=== PATIENT | female | born 2000 | race African-American/Black ===

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

== ENCOUNTER 2019-05-12 15:28 | Emergency (ER) | payer SELFPAY ==
[~2019-05-12] VITALS: Ht 157.5 cm; Wt 105.3 kg
[~2019-05-12 15:28] MED LIST: RANI-376 PO
--- NOTE | 2019-05-12 15:52 | PHYS DOC ---
Past History Past Medical History: Anemia, Constipation Past Surgical History: Tonsillectomy, Other Alcohol Use: None Drug Use: None Adult General Chief Complaint Chief Complaint: NAUSEA/VOMITING/DIARRHEA HPI HPI Patient is a 19-year-old -[place] female who presents secondary to complaint of nausea vomiting and diarrhea since 230 this morning. No fever chills reported. No significant abdominal pain. No medication taken prior to arrival. Patient's last menstrual period was on April 21. No sick contacts. Review of Systems Review of Systems All other systems were reviewed and found to be within normal limits, except as documented in this note. Allergies Allergies Allergies Coded Allergies Type Severity Reaction Last Updated Verified No Known Drug Allergies 09/20/18 No Physical Exam Physical Exam Constitutional: Well developed, well nourished, no acute distress, non-toxic appearance. [] HENT: Normocephalic, atraumatic, bilateral external ears normal, oropharynx moist, no oral exudates, nose normal. [] Eyes: PERRLA, EOMI, conjunctiva normal, no discharge. [] Neck: Normal range of motion, no tenderness, supple, no stridor. [] Cardiovascular:Heart rate regular rhythm, no murmur [] Lungs & Thorax: Bilateral breath sounds clear to auscultation [] Abdomen: Bowel sounds normal, soft, no tenderness, no masses, no pulsatile masses. [] Skin: Warm, dry, no erythema, no rash. [] Back: No tenderness, no CVA tenderness. [] Extremities: No tenderness, no cyanosis, no clubbing, ROM intact, no edema. [] Neurologic: Alert and oriented X 3, normal motor function, normal sensory function, no focal deficits noted. [] Psychologic: Affect normal, judgement normal, mood normal. [] EKG EKG [] Radiology/Procedures Radiology/Procedures [] Course & Med Decision Making Course & Med Decision Making Pertinent Labs and Imaging studies reviewed. (See chart for details) Patient seen for gastroenteritis type symptoms. Will place an IV and give IV fluids, check labs. Check . Patient's work-up is negative. She is not . She is feeling better. Will discharge home with ODT Geoffreyan. Sherry Disclaimer Sherry Disclaimer This electronic medical record was generated, in whole or in part, using a voice recognition dictation system. Departure Departure: Impression: Primary Impression: Nausea vomiting and diarrhea Disposition: HOME, SELF-CARE Condition: IMPROVED Referrals: [facility] (PCP) Patient Instructions: Nausea and Vomiting Scripts Ondansetron Hcl (ZOFRAN) 4 Mg Tablet 1 TAB PO PRN Q6HRS PRN for NAUSEA, #15 TAB Prov: GRAY GOMEZ DO 05/12/19 GRAY GOMEZ DO May 12, 2019 15:52
[2019-05-12] MEDS ORDERED: ONDANSETRON PF 4 MG/2 ML VIAL. IVP ONE (16:00)
[2019-05-12] MEDS ORDERED: IV NORMAL SALINE 1,000ML 1,000 ML IV ONE (16:00)
[2019-05-12 16:01] VITALS: BP 123/80
[2019-05-12 16:13] LABS: BASO % 0 % (0-3); EOS # 0.1 x10^3/uL (0.0-0.7); EOS % 1 % (0-3); HEMATOCRIT 35.7 % (36.0-47.0); HEMOGLOBIN 11.4 g/dL (12.0-15.5); LYMPH # 0.4 x10^3/uL (1.0-4.8); LYMPH % 4 % (24-48); MEAN CORPUSCULAR HEMOGLOBIN 22 pg (25-35); MEAN CORPUSCULAR HGB CONC 32 g/dL (31-37); MEAN CORPUSCULAR VOLUME 69 fL (79-100); MONO # 0.2 x10^3/uL (0.0-1.1); MONO % 2 % (0-9); NEUT # 9.1 x10^3uL (1.8-7.7); NEUT % 92 % (31-73); PLATELET COUNT 375 x10^3/uL (140-400); RED BLOOD COUNT 5.19 x10^6/uL (3.50-5.40); RED CELL DISTRIBUTION WIDTH 16.7 % (11.5-14.5); WHITE BLOOD COUNT 9.9 x10^3/uL (4.0-11.0)
[2019-05-12 16:22] LABS: CALCIUM 8.6 mg/dL (8.5-10.1); CREATININE 0.7 mg/dL (0.6-1.0); GFR 129.1; POTASSIUM 4.1 mmol/L (3.5-5.1)
[2019-05-12 16:28] LABS: PREG TEST PT QUAL NEGATIVE (NEG)
[2019-05-12 16:28] LABS: ALBUMIN 3.6 g/dL (3.4-5.0); ALBUMIN/GLOBULIN RATIO 0.9 (1.0-1.7); TOTAL BILIRUBIN 0.3 mg/dL (0.2-1.0); TOTAL PROTEIN 7.7 g/dL (6.4-8.2)
[2019-05-12 16:30] LABS: INFLUENZA A PATIENT NEGATIVE (NEGATIVE); INFLUENZA B PATIENT NEGATIVE (NEGATIVE)
[2019-05-12] MEDS ORDERED: ONDA4TAB7 PO (17:02)
[2019-05-12 17:12] LABS: % BANDS 5 % (0-9); % EOS 2 % (0-5); % LYMPHS 4 % (24-48); % MONOS 2 % (0-10); % SEGS 87 % (35-66); ANISOCYTOSIS MOD; HYPOCHROMIA SLIGHT; MICROCYTOSIS MOD
[2019-05-12 17:13] LABS: PLT ESTIMATE ADEQUATE (ADEQUATE)
== END 2019-05-12 17:16 | disposition home or self-care (01) ==
LOC: ER 15:28
DX: R11.2 Nausea with vomiting, unspecified (principal); R19.7 Diarrhea, unspecified; Z86.2 Personal history of diseases of the blood and blood-forming organs and certain disorders involving the immune mechanism
CPT/HCPCS: 36415; 80053; 83690; 84703; 85007; 85025; 87804; 96361; 96374; 99283; J2405; J7030

== ENCOUNTER 2021-04-10 14:19 | Emergency (ER) | payer OTHER ==
[~2021-04-10] VITALS: Ht 157.5 cm; Wt 98.0 kg
[~2021-04-10 14:19] MED LIST changes: +ONDA4TAB7 PO
--- NOTE | 2021-04-10 14:27 | PHYS DOC ---
Past History Past Medical History: Anemia, Constipation Past Surgical History: Tonsillectomy, Other Alcohol Use: None Drug Use: None Adult General HPI HPI Patient is a 21-year-old female at 24 weeks gestation presenting for syncope. This is an acute issue. States she has no diagnosed medical issues and is only taking prenatals for current which she has had consistent outpatient follow-up for. Does admit that she has had issues with hypotension in the past several weeks that has been monitored in outpatient setting by primary care physician and HOSPITAL ADMISSIONS OFFICER, she is not on any medications to cause this. Reports yesterday changing position from seated to standing position where she got lightheaded "and fainted" reportedly hitting the back of her head, patient initially reported potential loss of consciousness but is able to recall all events. Was able to get up without issue and go about her day without any subsequent symptoms. Reports today she had similar lightheaded symptoms that arose after getting up from a seated to standing position. These self resolved after she sat back down but she got soon concerned and called her HOSPITAL ADMISSIONS OFFICER who advised her to seek care at our facility. Patient is aware we do not have HOSPITAL ADMISSIONS OFFICER services here. She is otherwise asymptomatic on arrival here with no other concerning signs or symptoms reported Review of Systems Review of Systems Fourteen body systems of review of systems have been reviewed. See HPI for pertinent positives and negative responses, other dumont all other systems are negative, non-pertinent or non-contributory Allergies Allergies Allergies Coded Allergies Type Severity Reaction Last Updated Verified No Known Drug Allergies 09/20/18 No Physical Exam Physical Exam Constitutional: Well developed, well nourished, no acute distress, non-toxic appearance. HENT: Normocephalic, atraumatic, bilateral external ears normal, oropharynx moist, no oral exudates, nose normal. Eyes: PERRLA, EOMI, conjunctiva normal, no discharge. Neck: Normal range of motion, no tenderness, supple, no stridor. Cardiovascular: Heart rate regular, sinus rhythm, no murmurs rubs or gallops Lungs & Thorax: Bilateral breath sounds clear to auscultation Abdomen: Bowel sounds normal, soft and gravid, no tenderness, no masses, no pulsatile masses. Nonsurgical abdomen, no peritoneal signs. heart rate 148 bpm Skin: Warm, dry, no erythema, no rash. Back: No tenderness, no CVA tenderness. Extremities: No tenderness, no cyanosis, no clubbing, ROM intact, no edema. Neurologic: Alert and oriented X 3, cranial nerves II through XII intact, normal motor & sensory function, no focal deficits noted. Psychologic: Affect normal, judgement normal, mood normal. Current Patient Data Vital Signs Vital Signs Date Time Temp Pulse Resp B/P (MAP) Pulse Ox O2 Delivery O2 Flow Rate FiO2 04/10/21 16:54 98.1 106 18 114/69 (84) 99 Room Air Vital Signs Date Time Temp Pulse Resp B/P (MAP) Pulse Ox O2 Delivery O2 Flow Rate FiO2 04/10/21 16:54 98.1 106 18 114/69 (84) 99 Room Air Lab Results Current Medications Medications (Trade) Dose Ordered Sig/Heather Route PRN Reason Start Time Stop Time Status Last Admin Dose Admin Lactated Ringer's 1,000 ml @ 150 mls/hr 1X ONCE IV 04/10/21 14:45 04/10/21 18:07 DC 04/10/21 15:15 EKG EKG EKG ordered and interpreted by myself at 1458 hrs. as sinus rhythm at 100 bpm, unremarkable intervals, no axis deviation, no acute ischemic findings, no STEMI Radiology/Procedures Radiology/Procedures [] Heart Score C/O Chest Pain: No HEART Score for Chest Pain: HEART Score for Chest Pain Response (Comments) Value History Slighlty/Non-Suspicious 0 ECG Normal 0 Age < 45 0 Risk Factors No Risk Factors 0 Total 0 Risk Factors: Risk Factors: DM, Current or recent (<one month) smoker, HTN, HLP, family history of CAD, obesity. Risk Scores: Risk Factors: DM, Current or recent (<one month) smoker, HTN, HLP, family history of CAD, obesity. Course & Med Decision Making Course & Med Decision Making ABCs unremarkable HPI physical exam and comprehensive ER work-up nonconcerning for any emergent or surgical issues Based on HPI, likely patient exhibiting orthostatic hypotension. 1 L IV fluid administered. No recurrence of symptoms while in ER. Disclosed entirety of ER work-up that was nonconcerning in nature Also discussed finding of urinalysis, discussed my concern this was not a clean- catch with plans to follow culture. Patient reports having access and follow-up plans with HOSPITAL ADMISSIONS OFFICER within upcoming 72 hours which I feel is appropriate. Of note, I followed up on urinalysis 04/13/2021 and confirmed as contaminant Ultimately, joint decision made to discharge home with little indication for further diagnostic work-up and/or need for hospital transfer for hospitalization. Strict return precautions discussed at length with good understanding by patient prior to ER departure Sherry Disclaimer Sherry Disclaimer This electronic medical record was generated, in whole or in part, using a voice recognition dictation system. Departure Departure: Impression: Primary Impression: Orthostatic hypotension Additional Impression: related condition in second trimester Disposition: 01 HOME / SELF CARE / HOMELESS Condition: STABLE Referrals: JOE TIDWELL (PCP) Patient Instructions: ABCs of , Orthostatic Hypotension Additional Instructions: You were seen for syncope likely related to orthostatic hypotension. You should make sure to drink plenty of fluids. It is unclear what caused your symptoms but your initial evaluation did not show any concerning symptoms or features. Return to the ED immediately if you develop worsening symptoms, chest pain, shortness of breath, numbness, tingling, weakness, vision change, or any other new or concerning symptoms. You should follow up with your primary care doctor and HOSPITAL ADMISSIONS OFFICER in a few days to have your labs repeated and to be evaluated again. Problem Qualifiers ALESHA PETERS DO Apr 10, 2021 14:27
[2021-04-10] MEDS ORDERED: IV RINGERS SOLUTION,LACTATED 1,000 ML IV ONE (14:45)
[2021-04-10 15:10] LABS: BASO % 0 % (0-3); EOS # 0.1 x10^3/uL (0.0-0.7); EOS % 2 % (0-3); HEMATOCRIT 26.9 % (36.0-47.0); HEMOGLOBIN 8.5 g/dL (12.0-15.5); LYMPH # 1.7 x10^3/uL (1.0-4.8); LYMPH % 24 % (24-48); MEAN CORPUSCULAR HEMOGLOBIN 21 pg (25-35); MEAN CORPUSCULAR HGB CONC 32 g/dL (31-37); MEAN CORPUSCULAR VOLUME 67 fL (79-100); MONO # 0.5 x10^3/uL (0.0-1.1); MONO % 7 % (0-9); NEUT # 4.8 x10^3uL (1.8-7.7); NEUT % 67 % (31-73); PLATELET COUNT 381 x10^3/uL (140-400); RED BLOOD COUNT 4.04 x10^6/uL (3.50-5.40); RED CELL DISTRIBUTION WIDTH 16.9 % (11.5-14.5); WHITE BLOOD COUNT 7.1 x10^3/uL (4.0-11.0)
[2021-04-10 15:14] LABS: CALCIUM 8.7 mg/dL (8.5-10.1); CREATININE 0.5 mg/dL (0.6-1.0); GFR 186.7; POTASSIUM 3.7 mmol/L (3.5-5.1)
--- NOTE | 2021-04-10 15:55 | EKG ---
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
[2021-04-10 16:34] LABS: BACTERIA,URINE MOD /HPF (0-FEW); BILIRUBIN,URINE NEG (NEG); CLARITY,URINE CLEAR; COLOR,URINE YELLOW; GLUCOSE,URINE NEG (NEG); NITRITE,URINE NEG (NEG); RBC,URINE 0 /HPF (0-2); SQUAMOUS EPITHELIAL CELL,UR MOD /LPF; UROBILINOGEN,URINE 0.2 mg/dL (0.2 mg/dL)
[2021-04-10 16:54] VITALS: BP 114/69
[2021-04-10 16:59] LABS: PLT ESTIMATE ADEQUATE (ADEQUATE)
[2021-04-10 17:00] LABS: ANISOCYTOSIS MOD; HYPOCHROMIA SLIGHT; MICROCYTOSIS SLIGHT
== END 2021-04-10 16:20 | disposition home or self-care (01) ==
LOC: ER 14:19
DX: O26.52 Maternal hypotension syndrome, second trimester (principal); O99.012 Anemia complicating pregnancy, second trimester; Z3A.24 24 weeks gestation of pregnancy
CPT/HCPCS: 36415; 80048; 81001; 82947; 85025; 87086; 93005; 96360; 96361; 99284; J7120